=== PATIENT | male | born 1935 | race Caucasian/White ===

== ENCOUNTER 2016-05-27 07:44 | Day surgery (SDC) | payer OTHER ==
[~2016-05-27] VITALS: Ht 172.7 cm; Wt 84.1 kg
[2016-05-27] VITALS (7 sets, daily range): BP systolic 114–148; BP diastolic 56–72; PULSE 54–70; RESP 14–18; TEMP 98–98.6; O2SAT 95–98
[~2016-05-27 07:44] MED LIST: ATOR10 PO; B-12100T2 PO; DOCU1CAP39 PO; DUONI NEB; FURO1TAB93 PO; IRON325T2 PO; KCL20 PO; LEVO.075 PO; LISI10 PO; META48.53 PO; OMEP20TA PO; RIVA15 PO; TAB-TAB PO; TERA2CAP3 PO; VITA400C28 PO; VITA500T83 PO
[2016-05-27] MEDS ORDERED: CHLORHEXIDINE GLUCONATE 2 % 1 PACK (2 CLOTHS) TOP SCH (08:30)
[2016-05-27] MEDS ORDERED: MUPIROCIN 2% OINT 1 APPLIC/GM SYR NASAL SCH (08:30)
[2016-05-27] MEDS: NS 1000 ML IV SCH (08:30)
[2016-05-27] MEDS ORDERED: POVIDONE IODINE 5% (ANTISEPSIS KIT) 4 APPLICATIONS EACH NARE SCH (08:30)
[2016-05-27] MEDS ORDERED: ceFAZolin 2 GM PREMIX 50 ML IV SCH (08:30)
[2016-05-27 08:48] LABS: AUTOMATED NEUTROPHIL # 3.9 TH/MM3 (1.8-7.7); BASOPHIL # 0.1 TH/MM3 (0-0.2); BASOPHIL % 1.1 % (0.0-2.0); EOSINOPHIL # 0.2 TH/MM3 (0-0.4); EOSINOPHIL % 2.9 % (0.0-4.0); HEMATOCRIT 36.6 % (39.0-51.0); HEMO FLAGS DIFF FINAL; LYMPH % 18.6 % (9.0-44.0); MEAN CELL VOLUME 95.7 FL (80.0-100.0); MEAN CORPUSCULAR HEMOGLOBIN 33.4 PG (27.0-34.0); MEAN CORPUSCULAR HGB CONC 34.9 % (32.0-36.0); MONO % 7.5 % (0.0-8.0); NEUT % 69.9 % (16.0-70.0); PLATELET COUNT 163 TH/MM3 (150-450); RED BLOOD COUNT 3.82 MIL/MM3 (4.50-5.90); RED CELL DISTRIBUTION WIDTH 13.5 % (11.6-17.2); WHITE BLOOD COUNT 5.6 TH/MM3 (4.0-11.0)
[2016-05-27 09:03] LABS: BICARBONATE 31.6 MEQ/L (21.0-32.0); POTASSIUM 3.6 MEQ/L (3.5-5.1)
[2016-05-27] MEDS ORDERED: VANCOMYCIN HCL 1000 MG VIAL ONE (09:05)
[2016-05-27] MEDS ORDERED: SODIUM CHLOR 0.9% 250 ML INJ 250 ML ONE (09:05)
[2016-05-27] MEDS ORDERED: MULT1TAB84 PO (09:13)
[2016-05-27] MEDS ORDERED: IPRASOL INH (09:13)
[2016-05-27] MEDS ORDERED: TERA2CAP3 PO (09:13)
[2016-05-27] MEDS ORDERED: COLA100C3 PO (09:13)
[2016-05-27] MEDS ORDERED: ATOR10TA15 PO (09:13)
[2016-05-27] MEDS ORDERED: VITA400C28 PO (09:13)
[2016-05-27] MEDS ORDERED: META48.53 PO (09:13)
[2016-05-27] MEDS ORDERED: OMEP20TA PO (09:13)
[2016-05-27] MEDS ORDERED: POTA-163 PO (09:13)
[2016-05-27] MEDS ORDERED: METO25TA3 PO (09:13)
[2016-05-27] MEDS ORDERED: VITA250C3 CHEW (09:13)
[2016-05-27] MEDS ORDERED: LEVO50TA4 PO (09:13)
[2016-05-27] MEDS ORDERED: FURO1TAB60 PO (09:13)
[2016-05-27] MEDS ORDERED: LISI10TA3 PO (09:13)
[2016-05-27] MEDS ORDERED: VITA100T15 PO (09:14)
[2016-05-27] MEDS ORDERED: XARE15TA PO (09:14)
[2016-05-27] MEDS ORDERED: GLUC1500 PO (09:14)
[2016-05-27 10:03] LABS: APTT (PATIENT) 26.8 SEC (24.3-30.1); PROTHROMBIN TIME - PATIENT 11.4 SEC (9.8-11.6)
[2016-05-27] MEDS ORDERED: VANCOMYCIN 500 MG VIAL ONE (10:30)
[2016-05-27] MEDS ORDERED: LIDOCAINE HCL 2% 50 ML VIAL ONE (10:31)
[2016-05-27] MEDS ORDERED: MIDAZOLAM HCL 2 MG/2 ML VIAL ONE (10:41)
[2016-05-27] MEDS ORDERED: PROPOFOL 200 MG/20 ML AMP IV ONE (11:00)
[2016-05-27] MEDS ORDERED: ePHEDrine/NS 50 MG/5 ML SYR IV ONE (11:00)
[2016-05-27] MEDS ORDERED: ONDANSETRON HCL 4 MG/2 ML VIAL IV PUSH ONE (11:00)
[2016-05-27] MEDS ORDERED: SODIUM CHLORID 0.9% 500 ML INJ 500 ML IV ONE (11:00)
[2016-05-27] MEDS ORDERED: IOHEXOL 350 MG/ML 50 ML BTL (for EPS) OTHER ONE (11:00)
--- NOTE | 2016-05-27 11:29 | PD.CARD ---
SINGLE CHAMBER DEFIB IMPLANT PROCEDURE DATE: May 27, 2016 Prevention: Primary Single Chamber Defib Implant PROCEDURE: Single chamber defibrillator implantation and device testing. INDICATIONS: Mr. Smith is a 80 -year-old male with hx of ischemic cardiomyopathy , with congestive heart failure II, ejection fraction 20% ( may 2016), coronary artery disease, CABG, on optimal medical management per guideline, previous echo also on October 2015 EF was 21% who undergo defibrillator implantation for sudden primary prevention. The risks, the nature and the benefit of the procedure are clearly stated to him . Risks include pneumothorax, cardiac perforation, stroke and even . He understood and agreed to proceed. PROCEDURE: After written, informed consent was obtained, the patient was brought to the EP Lab where he was prepped and draped in the sterile fashion. Conscious sedation was initiated and maintained throughout the procedure by anesthesiologist. Once sedation was verified, the left infraclavicular area was anesthetized with 2% Xylocaine. Using modified Seldinger technique, the left subclavian vein was cannulated on one occasion and one guide wire was advanced. Then, using #11 blade scalpel, a 3-cm incision was made two fingerbreadths below left clavicle. This incision was then taken down to the deep fascial layer using Bovie cautery and blunt dissection. Into the inferomedial direction, a device pocket was dissected, then the wire was dissected into the pocket. A 2-0 Vicryl suture was placed around the wires to prevent bleeding. At this point, over the wire, the 7- [place] dilator and introducer was advanced. As dilator and wire were removed, an active fixation right ventricular pacing, sensing and defibrillatory lead was advanced. After adequate pacing and sensing thresholds were obtained, the lead was secured in the pocket with #2 Ethibond suture. At that point, the pocket was copiously irrigated with antibiotic solution. The leads were connected to the generator and placed into the pocket. I decided not to proceed with NIPS. I did proceed with wound closure. The deep fascial layer was approximated with 2-0 Vicryl suture in a continuous fashion. The subcutaneous layer was approximated with 2-0 Vicryl suture in a continuous fashion. The subcuticular layer was approximated with 2-0 Vicryl suture in a continuous fashion. Dermabond adhesive was applied to the wound, followed by a sterile pressure dressing. There was no complication. The patient tolerated procedure. Blood loss minimal. 1. Implanted Hardware: The implanted defibrillator generator is a [place], model number AH5414-20O, serial number [id number]. The right ventricular pacing, sensing and defibrillatory lead is a [place] model number 7121Q-65, serial number [id number]. 2. Thresholds: The right ventricular pacing threshold in the bipolar mode was 1.0 volts at 0.5 milliseconds, lead impedance 840 ohms and R-wave at 12 mV. The right ventricular defibrillatory threshold was not measured. 3. Settings: The device set in VVI 40 defibrillatory portion for two zones, one zone for ventricular tachycardia between 160 and 240 beats per minute. Initial therapy consists of one burst of ATP, one ramp, 81%, 10 pulse, 10 millisecond decremental, followed by 20, then 30 and all subsequent shocks at 40 joules defibrillatory shock, the second zone for ventricular fibrillation above 240 beats per minute, first therapy at 30 and all subsequent shocks at 40 joules defibrillatory shock. CONCLUSIONS: Successful defibrillator implantation. COMMENT AND RECOMMENDATIONS: The patient will be transferred to the telemetry unit, will be observed and when stable can be discharged home. Brenda Bains MD May 27, 2016 11:29
[2016-05-27] MEDS ORDERED: MORPHINE SULFATE 8 MG/ML INJ ONE (11:57)
[2016-05-27] MEDS ORDERED: ONDANSETRON HCL 4 MG/2 ML VIAL ONE (12:09)
[2016-05-27] MEDS ORDERED: DO NOT ADM ANY ANTICOAGULANT DRUGS XX PRN (12:15)
--- NOTE | 2016-05-27 12:38 | EKG ---
Date Performed: 05/27/2016 Time Performed: 08:54:48 PTAGE: 80 years EKG: Sinus bradycardia. Leftward axis Left bundle branch block Abnormal ECG Compared to prior tr acing no significant change PREVIOUS TRACING 01/02/2016 05.37.58 DOCTOR: Livan Ledesma Interpretating Date/Time 05/27/2016 12:35:00
[2016-05-27] MEDS ORDERED: PILL SPLITTER OTHER PRN (13:00)
[2016-05-27] MEDS ORDERED: RIVAROXABAN 15 MG TAB PO SCH (18:00)
[2016-05-27] MEDS: METOPROLOL TARTRATE 25 MG TAB PO SCH (20:48)
[2016-05-27] MEDS: PANTOPRAZOLE SOD 20 MG DELAYED RELEASE TAB PO SCH (20:49)
[2016-05-27] MEDS: DOCUSATE SODIUM 100 MG CAP PO SCH (20:49)
[2016-05-27] MEDS ORDERED: ATORVASTATIN 10 MG TAB PO SCH (21:00)
[2016-05-27] MEDS ORDERED: TERAZOSIN HCL 1 MG CAP PO SCH (21:00)
[2016-05-27] MEDS ORDERED: ACETAMINOPHEN/HYDROcodone 325 MG/10 MG TAB PO PRN (21:30)
[2016-05-27] MEDS: ACETAMINOPHEN/HYDROcodone 325 MG/10 MG TAB PO PRN ×2 (22:13→23:13)
[2016-05-28] VITALS (8 sets, daily range): BP systolic 109–117; BP diastolic 54–58; PULSE 54–58; RESP 16–18; TEMP 97.8–98.6; O2SAT 93–95
[2016-05-28] MEDS ORDERED: LEVOTHYROXINE SODIUM 50 MCG TAB PO SCH (06:00)
[2016-05-28] MEDS ORDERED: CEPH-460 PO (07:54)
[2016-05-28] MEDS: ACETAMINOPHEN/HYDROcodone 325 MG/10 MG TAB PO PRN (07:56)
[2016-05-28] MEDS: METOPROLOL TARTRATE 25 MG TAB PO SCH (08:04)
[2016-05-28] MEDS: PANTOPRAZOLE SOD 20 MG DELAYED RELEASE TAB PO SCH (08:04)
[2016-05-28] MEDS: DOCUSATE SODIUM 100 MG CAP PO SCH (08:05)
[2016-05-28] MEDS: NS 1000 ML IV SCH (08:30)
[2016-05-28] MEDS ORDERED: MULTIVITAMINS/MINERALS THERAPEUTIC TAB PO SCH (09:00)
[2016-05-28] MEDS ORDERED: FUROSEMIDE 40 MG TAB PO SCH (09:00)
[2016-05-28] MEDS ORDERED: RIVAROXABAN 15 MG TAB PO SCH (09:00)
[2016-05-28] MEDS ORDERED: ASCORBIC ACID 500 MG TAB PO SCH (09:00)
[2016-05-28] MEDS ORDERED: POTASSIUM CHLORIDE 20 MEQ CONTROLLED RELEASE TAB PO SCH (09:00)
[2016-05-28] MEDS ORDERED: LISINOPRIL 10 MG TAB PO SCH (09:00)
--- NOTE | 2016-05-28 09:29 | RADRPT ---
EXAM DATE/TIME: 05/28/2016 08:54 [facility] COMPARISON: No previous studies available for comparison. INDICATIONS : Post defibrillator placement yesterday. MEDICAL HISTORY : None. SURGICAL HISTORY : aortic valve surgery. ENCOUNTER: Initial ACUITY: 2 days PAIN SCORE: 0/10 LOCATION: Bilateral chest FINDINGS: A single view of the chest demonstrates the lungs to be symmetrically aerated without evidence of mas s, infiltrate or effusion. New left subclavian Chcocd-p-Bqjd catheter without evidence of pneumothora x. 7 intact sternal wires. Heart remains enlarged. The cardiomediastinal contours are unremarkable. Osseous structures are intact. CONCLUSION: Normal examination status post placement of left subclavian pacer. Sergo Arenas MD on May 28, 2016 at 9:27 Board Certified Radiologist. This report was verified electronically.
--- NOTE | 2016-05-28 15:09 | PD.CARD.PN ---
Subjective Subjective Remarks Feels ok. Objective Vital Signs / I&O Vital Signs Date Time Temp Pulse Resp B/P Pulse Ox O2 Delivery O2 Flow Rate FiO2 05/28/16 07:00 57 05/28/16 07:00 97.8 58 18 117/58 93 05/28/16 06:00 56 05/28/16 05:00 54 05/28/16 04:00 56 05/28/16 03:00 54 05/28/16 03:00 98.6 56 16 109/54 95 05/28/16 02:00 56 05/28/16 01:00 56 05/28/16 00:00 56 05/27/16 23:15 14 05/27/16 23:00 56 05/27/16 23:00 98.1 60 14 114/56 96 05/27/16 22:00 62 05/27/16 21:00 66 05/27/16 20:00 66 05/27/16 19:00 62 05/27/16 19:00 98.1 70 14 139/71 95 05/27/16 15:05 98.0 54 18 140/71 98 I/O 05/27/16 05/27/16 05/27/16 05/28/16 05/28/16 05/28/16 07:00 15:00 23:00 07:00 15:00 23:00 Intake Total 960 ml Output Total 420 ml Balance 540 ml Intake Oral 960 ml Output Urine Total 420 ml Physical Exam GENERAL: Well-nourished, well-developed patient. SKIN: Warm and dry. LCW incision well approximated without erythema or drainage. HEAD: Normocephalic. EYES: No scleral icterus. No injection or drainage. NECK: Supple, trachea midline. No JVD or lymphadenopathy. CARDIOVASCULAR: Regular rate and rhythm without murmurs, gallops, or rubs. RESPIRATORY: Breath sounds equal bilaterally. No accessory muscle use. GASTROINTESTINAL: Abdomen soft, non-tender, nondistended. EXTREMITIES: No cyanosis, or edema. NEUROLOGICAL: Awake, alert, and oriented x 3. Non-focal. Imaging Last Impressions Chest X-Ray 05/28/16 0000 Signed Impressions: Service Date/Time: Saturday, May 28, 2016 08:54 - CONCLUSION: Normal examination status post placement of left subclavian pacer. Sergo Arenas MD Assessment and Plan Problem List: (1) Ischemic cardiomyopathy Assessment and Plan: EF 20% on optimal medical management. (2) S/P ICD (internal cardiac defibrillator) procedure Assessment and Plan: Stable for discharge s/p ICD implantation for SCD primary prevention. Post operative education completed with patient, all questions answered. Assessment and Plan DC home, f/u with Dr. Bains in 2 weeks. Discussed Condition With LATRICIA pt, RN, Dr. Bains. Shanon Lo May 28, 2016 15:09
== END 2016-05-28 11:24 | disposition home or self-care (01) ==
LOC: HDIC 07:44 → HDOC 07:44 → HCIN 13:34 → HDOC 05-28 11:24
PROVIDERS: ATTEND Internal Medicine Interventional Cardiology
DX: I25.5 Ischemic cardiomyopathy (principal); I13.0 Hypertensive heart and chronic kidney disease with heart failure and stage 1 through stage 4 chronic kidney disease, or unspecified chronic kidney disease; I50.9 Heart failure, unspecified; N18.3 Chronic kidney disease, stage 3 (moderate); I25.10 Atherosclerotic heart disease of native coronary artery without angina pectoris; R00.1 Bradycardia, unspecified; I44.7 Left bundle-branch block, unspecified; R01.1 Cardiac murmur, unspecified; I35.0 Nonrheumatic aortic (valve) stenosis; R06.02 Shortness of breath; R53.83 Other fatigue; Z79.01 Long term (current) use of anticoagulants
CPT/HCPCS: 00534; 33249; 71010; 80048; 85025; 85610; 85730; 86850; 86900; 86901; 93005; C1722; C1895; J0690; J2250; J2270; J2405; J3010; J3370; J7040; J7050; Q9967